=== PATIENT | male | born 1980 | race Two or more races ===

== ENCOUNTER 2018-01-27 06:11 | Inpatient (IN) | payer BC ==
[2018-01-26 11:20] VITALS: BMI 27.8
[~2018-01-27 06:11] MED LIST: BUPIVACAINE HCL/PF (5 MG/ML) 30 ML VIAL IJ ONE
[2018-01-27] MEDS ORDERED: LIDOCAINE 1%/EPI 1:100000 (20 ML MULTI DOSE VIAL) ONE (07:29)
[2018-01-27] MEDS ORDERED: THROMBIN (BOVINE) 20,000 UNIT VIAL TP ONE ×2 (07:29→09:05)
[2018-01-27] MEDS ORDERED: GENTAMICIN SO4 80 MG/2 ML VIAL ONE ×2 (07:31→11:47)
[2018-01-27] MEDS ORDERED: BUPIVACAINE HCL/PF 0.5% (5MG/ML) 10 ML VIAL ONE (07:35)
--- NOTE | 2018-01-27 07:38 | HP ---
History & Physical Update - History History: No Change - Physical Physical: No Change - Assessment Assessment: No Change - Plan Plan: No Change (H&P in chart from 01/20/2018)
[2018-01-27] MEDS ORDERED: MIDAZOLAM HCL 2 MG/2 ML SINGLE DOSE VIAL ONE (08:02)
[2018-01-27] MEDS ORDERED: fentaNYL CITRATE 250 MCG/5 ML VIAL ONE ×3 (08:03→11:59)
[2018-01-27] MEDS ORDERED: ROCURONIUM BROMIDE 50 MG/5 ML VIAL ONE ×3 (08:07→11:01)
[2018-01-27] MEDS ORDERED: LIDOCAINE HCL/PF 2% SDV 5ML VIAL ONE (08:08)
[2018-01-27] MEDS ORDERED: PROPOFOL 20 ML ONE ×4 (08:08→13:08)
[2018-01-27] MEDS ORDERED: SUCCINYLCHOLINE CHLORIDE 200 MG/10 ML VIAL ONE (08:23)
[2018-01-27] MEDS ORDERED: VANCOMYCIN 1,000 MG VIAL (RESTRICTED TO ID ONLY) IVPB ONE ×2 (08:40→11:57)
[2018-01-27] MEDS ORDERED: LIDOCAINE 1%/EPI 1:100000 (50 ML MULTI DOSE VIAL) INF ONE (09:00)
[2018-01-27] MEDS ORDERED: ACETAMINOPHEN 1000 MG/100 ML VIAL (NON FORMULARY) IVPB ONE ×2 (09:05→14:00)
[2018-01-27] MEDS ORDERED: ACETAMINOPHEN INJECTION 100 ML IVPB ONE (09:06)
[2018-01-27] MEDS ORDERED: GELATIN, ABSORBABLE 12-7MM EACH SPONGE TP ONE (09:10)
[2018-01-27] MEDS ORDERED: BACITRACIN 50,000 UNITS VIAL NR ONE ×3 (09:10→11:57)
[2018-01-27] MEDS ORDERED: THROMBIN (BOVINE) 5,000 UNIT VIAL TP ONE (09:10)
[2018-01-27] MEDS ORDERED: GENTAMICIN SO4 80 MG/2 ML VIAL IVPB ONE ×2 (09:10→11:57)
[2018-01-27] MEDS ORDERED: ceFAZolin SODIUM 1 GM VIAL IVPB ONE ×3 (09:26→12:35)
[2018-01-27] MEDS ORDERED: ceFAZolin SODIUM 1 GM VIAL ONE ×3 (09:32→19:40)
[2018-01-27] MEDS ORDERED: ONDANSETRON 4 MG/2 ML VIAL IVPUSH PRN ×4 (10:21→13:59)
[2018-01-27] MEDS ORDERED: LACTATED RINGERS SOLUTION 1,000 ML IV SCH ×2 (10:30→12:45)
[2018-01-27] MEDS ORDERED: HYDROmorphone *PCA* 10MG/50ML DISP.SYRIN PCA SCH (10:30)
[2018-01-27] MEDS ORDERED: ESMOLOL HCL 100,000 MCG/10 ML VIAL ONE (11:10)
[2018-01-27] MEDS ORDERED: VANCOMYCIN 1,000 MG VIAL (RESTRICTED TO ID ONLY) ONE (11:16)
[2018-01-27] MEDS ORDERED: DESFLURANE GAS 240 ML BOTTLE IH ONE (11:50)
[2018-01-27] MEDS ORDERED: NEOSTIGMINE METHYLSULFATE 0.5 MG/ML - 10 ML MDV ONE (11:54)
[2018-01-27] MEDS ORDERED: SODIUM CHLORIDE 0.9% P/F 10 ML VIAL IJ ONE (12:26)
[2018-01-27] MEDS ORDERED: oxyCODONE HCL 5 MG TABLET PO PRN (12:45)
[2018-01-27] MEDS ORDERED: CALCIUM CHLORIDE 1 GM/10 ML *DISP.SYRIN ONE (12:57)
[2018-01-27] MEDS ORDERED: BUPIVACAINE HCL/PF (5 MG/ML) 30 ML VIAL IJ ONE (13:17)
[2018-01-27] MEDS ORDERED: diphenhydrAMINE HCL 25 MG CAPSULE (FP) PO PRN (13:33)
[2018-01-27] MEDS ORDERED: IBUPROFEN 800 MG/8 ML IJ IVPB ONE ×2 (13:46→13:59)
[2018-01-27] MEDS: HYDROmorphone *PCA* 10MG/50ML DISP.SYRIN PCA SCH (14:35)
[2018-01-27] MEDS: LACTATED RINGERS SOLUTION 1,000 ML IV SCH ×2 (14:46→22:52)
--- NOTE | 2018-01-27 15:59 | OP ---
Operative Note - Note: Operative Date: 01/27/18 Pre-Operative Diagnosis: thoracic spondylolisthesis and instability Operation: T6-T11 laminectomy/costovetebral osteotomies decompression and fusion with pedicle screws, repair of durotomy Surgeon: Jakub Zazueta Anesthesiologist/STACKER AND SORTER OPERATOR: Tracy Gallego Anesthesia: General Estimated Blood Loss (mls): 900 Drains, Volume Out (mls): 700 (seals) Fluid Volume Replaced (mls): 3,500 Operative Report Dictated: Yes
[2018-01-27 16:27] LABS: HEMATOCRIT 39.6 % (35.4-49); HEMOGLOBIN 13.6 GM/dL (11.7-16.9); LYMPH % 6.2 % (8-40); MCH 32.5 pg (25.7-33.7); MCHC 34.4 g/dl (32.0-35.9); MEAN CELL VOLUME 94.4 fl (80-96); MEAN PLT VOLUME 9.2 fl (7.5-11.1); MONO % 1.3 % (3.8-10.2); NEUT % 92.5 % (42.8-82.8); PLATELET COUNT 197 K/MM3 (134-434); RBC 4.19 M/mm3 (4.00-5.60); RDW 12.7 % (11.9-15.9); WHITE BLOOD COUNT 17.5 K/mm3 (4.0-10.0)
[2018-01-27 17:23] LABS: PLATELET ESTIMATE ADEQUATE
[2018-01-27] MEDS: ACETAMINOPHEN 325 MG TABLET (FP) PO SCH ×2 (17:59→18:36)
[2018-01-27] MEDS: DOCUSATE SODIUM 100 MG CAPSULE (FP) PO SCH ×2 (17:59→21:09)
[2018-01-27] MEDS ORDERED: DEXTROSE 5%-WATER - 50 ML IVPB ONE (19:40)
[2018-01-27] MEDS: CEFAZOLIN 1 GM in DEXTROSE 5%-WATER - 50 ML IVPB SCH (19:47)
[2018-01-27] MEDS: HEPARIN NA (PORCINE) 5,000 UNITS/ML 1ML VIAL SQ SCH (21:09)
[2018-01-27] MEDS ORDERED: diazePAM 2 MG TABLET PO PRN (22:00)
[2018-01-28] MEDS: ACETAMINOPHEN 325 MG TABLET (FP) PO SCH ×4 (00:13→18:07)
[2018-01-28] MEDS: CEFAZOLIN 1 GM in DEXTROSE 5%-WATER - 50 ML IVPB SCH ×2 (02:35→09:47)
[2018-01-28] MEDS: HYDROmorphone *PCA* 10MG/50ML DISP.SYRIN PCA SCH ×2 (04:37→14:42)
[2018-01-28] MEDS: HEPARIN NA (PORCINE) 5,000 UNITS/ML 1ML VIAL SQ SCH ×3 (05:46→22:35)
[2018-01-28] MEDS: DOCUSATE SODIUM 100 MG CAPSULE (FP) PO SCH ×3 (05:46→22:34)
[2018-01-28] MEDS: LACTATED RINGERS SOLUTION 1,000 ML IV SCH ×2 (07:02→22:28)
[2018-01-28 07:03] LABS: HEMOGLOBIN 11.7 GM/dL (11.7-16.9); MCH 32.6 pg (25.7-33.7); MCHC 34.4 g/dl (32.0-35.9); MEAN CELL VOLUME 94.7 fl (80-96); MEAN PLT VOLUME 8.7 fl (7.5-11.1); PLATELET COUNT 159 K/MM3 (134-434); RBC 3.59 M/mm3 (4.00-5.60); RDW 12.5 % (11.9-15.9); WHITE BLOOD COUNT 16.1 K/mm3 (4.0-10.0)
[2018-01-28 07:59] LABS: ANION GAP 8 MMOL/L (8-16); BLOOD UREA NITROGEN 17 mg/dL (7-18); CALCIUM 8.3 mg/dL (8.5-10.1); CHLORIDE 102 mmol/L (98-107); CO2 28 mmol/L (21-32); CREATININE 0.7 mg/dL (0.7-1.3); GLUCOSE,RANDOM 117 mg/dL (74-106); POTASSIUM 4.7 mmol/L (3.5-5.1); SODIUM 138 mmol/L (136-145)
--- NOTE | 2018-01-28 08:54 | PN ---
Progress Note (short form) - Note Progress Note: Pt without any headaches. Having incisional back pain and a hypersensitivity to RUQ with light touch. Numbness tingling in his left arm resolved. No headaches today. Vital Signs Period Temp Pulse Resp BP Sys/Lin Pulse Ox Last 24 Hr 98.1 F-99.6 F 80-132 10-22 93-128/50-74 98-100 NIRAJ: 230 ml serosangrenous uop-500 ml clear/yellow urine GEN: A&0x3, having pain CV: RR, mild tachycardia Lungs: CTA b/l anteriorly ABD: soft, non-distended, non-tender Back: incision c/d/i with aquacel Neuro: upper motor strength 5/5 bilaterally with flexion/extension. 5/5 dorsi/ plantar flexion b/l. CBC, BMP 01/28/18 06:30 01/28/18 06:30 A/P: 37 yo male s/p T6-T11 laminectomy/costovetebral osteotomies decompression and fusion with pedicle screws Diet as tolerated Pain managment, increased frequency and dose of valium OOB/PT Continue to monitor NIRAJ outpt Stool softners colace/senna and MOM(as needed) DVT ppx with Hep SQ/SCDs IV abx while the drain remains D/w Dr. Zazueta
[2018-01-28] MEDS: diazePAM 2 MG TABLET PO SCH ×3 (09:37→22:35)
[2018-01-28] MEDS: SENNOSIDES 8.6MG TABLET (FP) PO SCH ×2 (09:38→22:35)
[2018-01-28] MEDS: FOLIC ACID 1 MG TABLET (FP) PO SCH (09:38)
[2018-01-28] MEDS: FERROUS SO4 325 MG TABLET (FP) PO SCH (09:38)
[2018-01-28] MEDS ORDERED: ceFAZolin SODIUM 1 GM VIAL ONE (09:45)
[2018-01-28] MEDS ORDERED: DEXTROSE 5%-WATER - 50 ML IVPB ONE (09:46)
--- NOTE | 2018-01-28 12:05 | PN ---
Progress Note (short form) - Note Progress Note: Anesthesia POD#1 S/P Costovertebral decompression under GA and HEAVY ANTIARMOR WEAPONS INFANTRYMAN VSS,started oral liquids,still needs HEAVY ANTIARMOR WEAPONS INFANTRYMAN for his pain, nausea sometimes. A/P Continue HEAVY ANTIARMOR WEAPONS INFANTRYMAN for today. Marlene Coats MD.
[2018-01-28] MEDS ORDERED: SIMETHICONE 80 MG TAB.CHEW (FP) PO PRN (14:42)
[2018-01-28] MEDS ORDERED: PT OWN MED DRAWER 7, Y5N ONE (21:53)
--- NOTE | 2018-01-28 21:53 | PN ---
Progress Note (short form) - Note Progress Note: patient seen and examined in room although has TRANSACTIONAL ATTORNEY reports "lots of pain" was able to stand and take few steps today Allergies PCN as a child PMH "back pain" Meds none hx of smoking none for many yrs Vital Signs Period Temp Pulse Resp BP Sys/Lin Pulse Ox Last 24 Hr 98.1 F-99.6 F 80-106 16-20 95-118/57-73 99 neck supple heart s1/s2 lung clear bilat abd soft / mildy distended / + tympanic BS ++ ext FROM / dvt stocking in place / seals in place CBC, BMP 01/28/18 06:30 01/28/18 06:30 Active Medications Acetaminophen (Tylenol -) 650 mg PO Q6H [facility] Last Admin: 01/28/18 18:07 Dose: 650 mg Diazepam (Valium -) 5 mg PO TID [facility] Stop: 01/29/18 22:01 Last Admin: 01/28/18 14:33 Dose: 5 mg Diphenhydramine HCl (Benadryl -) 25 mg PO Q6H PRN PRN Reason: FOR ITCHING Diphenhydramine HCl (Benadryl Injection -) 12.5 mg IVPUSH ONCE PRN PRN Reason: FOR ITCHING Docusate Sodium (Colace -) 100 mg PO TID [facility] Last Admin: 01/28/18 14:32 Dose: 100 mg Fentanyl (Sublimaze Injection -) 50 mcg IVPUSH [id number] PRN PRN Reason: PAIN-PACU ORDER X 4 DOSES ONLY Ferrous Sulfate (Feosol -) 325 mg PO DAILY [facility] Last Admin: 01/28/18 09:38 Dose: 325 mg Folic Acid (Folic Acid -) 1 mg PO DAILY [facility] Last Admin: 01/28/18 09:38 Dose: 1 mg Heparin Sodium (Porcine) (Heparin -) 5,000 unit SQ TID [facility] Last Admin: 01/28/18 14:33 Dose: 5,000 unit Hydromorphone HCl (Dilaudid Nursing Education Consultant -) 10 mg TRANSACTIONAL ATTORNEY TRANSACTIONAL ATTORNEY [facility]; Protocol Stop: 02/03/18 10:24 Last Admin: 01/28/18 14:42 Dose: 10 mg Lactated Ringer's (Lactated Ringers Solution) 1,000 mls @ 125 mls/hr IV ASDIR [facility] Last Admin: 01/28/18 07:02 Dose: 125 mls/hr Magnesium Hydroxide (Milk Of Magnesia -) 30 ml PO DAILY PRN PRN Reason: CONSTIPATION Ondansetron HCl (Zofran Injection) 4 mg IVPUSH Q6H PRN PRN Reason: NAUSEA AND/OR VOMITING Ondansetron HCl (Zofran Injection) 4 mg IVPUSH Q4H PRN PRN Reason: NAUSEA AND/OR VOMITING Pantoprazole Sodium (Protonix Iv) 40 mg IVPUSH DAILY [facility] Stop: 01/30/18 23:59 Senna (Senna -) 1 tab PO BID [facility] Last Admin: 01/28/18 09:38 Dose: 1 tab Simethicone (Mylicon -) 80 mg PO Q6H [facility] # POD#1 thoracic spondylolisthesis and instability s/p T6-T11 laminectomy/costovetebral osteotomies decompression and fusion with pedicle screws --TRANSACTIONAL ATTORNEY --simethicone --stool tx --encourage ambulation in am will order nebulzer tx encourage incentive spirometry
[2018-01-28] MEDS: PANTOPRAZOLE SODIUM 40 MG VIAL IVPUSH SCH (22:35)
[2018-01-29] MEDS: SIMETHICONE 80 MG TAB.CHEW (FP) PO SCH ×5 (00:13→23:30)
[2018-01-29] MEDS: LACTATED RINGERS SOLUTION 1,000 ML IV SCH ×2 (00:14→14:45)
[2018-01-29] MEDS: ACETAMINOPHEN 325 MG TABLET (FP) PO SCH ×4 (01:28→18:20)
[2018-01-29] MEDS: HYDROmorphone *PCA* 10MG/50ML DISP.SYRIN PCA SCH ×2 (02:25→14:42)
[2018-01-29] MEDS: HEPARIN NA (PORCINE) 5,000 UNITS/ML 1ML VIAL SQ SCH ×3 (06:40→21:07)
[2018-01-29] MEDS: diazePAM 2 MG TABLET PO SCH ×3 (06:41→21:10)
[2018-01-29] MEDS: DOCUSATE SODIUM 100 MG CAPSULE (FP) PO SCH ×3 (06:41→21:06)
[2018-01-29] MEDS: ALBUTEROL SO4 2.5/IPRATROPIUM 0.5 INH SOL 3 ML VIAL.NEB. NEB SCH ×4 (07:45→20:00)
[2018-01-29 08:03] LABS: BASO % 0.3 % (0-2.0); EOS % 0.2 % (0-4.5); HEMATOCRIT 28.4 % (35.4-49); HEMOGLOBIN 9.7 GM/dL (11.7-16.9); LYMPH % 16.7 % (8-40); MCH 32.1 pg (25.7-33.7); MCHC 34.2 g/dl (32.0-35.9); MEAN CELL VOLUME 93.9 fl (80-96); MEAN PLT VOLUME 8.4 fl (7.5-11.1); MONO % 11.5 % (3.8-10.2); NEUT % 71.3 % (42.8-82.8); PLATELET COUNT 127 K/MM3 (134-434); RBC 3.02 M/mm3 (4.00-5.60); RDW 12.4 % (11.9-15.9); WHITE BLOOD COUNT 11.9 K/mm3 (4.0-10.0)
--- NOTE | 2018-01-29 08:21 | PN ---
Progress Note (short form) - Note Progress Note: Anesthesia /acute pain management follow up 37 y/o M s/p T6T11 fusion, on MANAGER SURGICAL POD#2, vss, aaox3 using outlet manager and feeling better. Will continue outlet manager today.
[2018-01-29 09:28] LABS: ANION GAP 7 MMOL/L (8-16); BLOOD UREA NITROGEN 14 mg/dL (7-18); CALCIUM 7.8 mg/dL (8.5-10.1); CHLORIDE 101 mmol/L (98-107); CO2 30 mmol/L (21-32); CREATININE 0.7 mg/dL (0.7-1.3); GLUCOSE,RANDOM 103 mg/dL (74-106); POTASSIUM 3.9 mmol/L (3.5-5.1); SODIUM 138 mmol/L (136-145)
[2018-01-29] MEDS: FOLIC ACID 1 MG TABLET (FP) PO SCH (10:28)
[2018-01-29] MEDS: FERROUS SO4 325 MG TABLET (FP) PO SCH (10:28)
[2018-01-29] MEDS: MAGNESIUM HYDROX 2400MG/30ML ORAL SUSPENSION 30 ML CUP PO PRN (10:28)
[2018-01-29] MEDS: SENNOSIDES 8.6MG TABLET (FP) PO SCH ×2 (10:28→21:06)
[2018-01-29] MEDS: PANTOPRAZOLE SODIUM 40 MG VIAL IVPUSH SCH (10:28)
--- NOTE | 2018-01-29 12:23 | PN ---
Progress Note (short form) - Note Progress Note: 37 y/o male found sitting in bed s/p laminectomy. Rates pain as 7/10 on pain scale. Described as throbbing. Vital Signs Period Temp Pulse Resp BP Sys/Lin Pulse Ox Last 24 Hr 98.2 F-99.6 F 98-110 16-20 98-118/50-73 99 CBC, BMP 01/29/18 07:30 01/29/18 07:30 HEENT- NL Neck- supple Lungs- CTAB Heart- S1/S2 Abd- soft, nt Skin- Dsg intact on upper back Ext- No LE edema Active Medications Acetaminophen (Tylenol -) 650 mg PO Q6H [facility] Last Admin: 01/29/18 06:46 Dose: 650 mg Albuterol/Ipratropium (Duoneb -) 1 amp NEB RQID [facility] Stop: 01/30/18 23:59 Last Admin: 01/29/18 11:44 Dose: Not Given Diazepam (Valium -) 5 mg PO TID [facility] Stop: 01/29/18 22:01 Last Admin: 01/29/18 06:41 Dose: 5 mg Diphenhydramine HCl (Benadryl -) 25 mg PO Q6H PRN PRN Reason: FOR ITCHING Diphenhydramine HCl (Benadryl Injection -) 12.5 mg IVPUSH ONCE PRN PRN Reason: FOR ITCHING Docusate Sodium (Colace -) 100 mg PO TID [facility] Last Admin: 01/29/18 06:41 Dose: 100 mg Fentanyl (Sublimaze Injection -) 50 mcg IVPUSH [id number] PRN PRN Reason: PAIN-PACU ORDER X 4 DOSES ONLY Ferrous Sulfate (Feosol -) 325 mg PO DAILY [facility] Last Admin: 01/29/18 10:28 Dose: 325 mg Folic Acid (Folic Acid -) 1 mg PO DAILY [facility] Last Admin: 01/29/18 10:28 Dose: 1 mg Heparin Sodium (Porcine) (Heparin -) 5,000 unit SQ TID [facility] Last Admin: 01/29/18 06:40 Dose: 5,000 unit Hydromorphone HCl (Dilaudid Art Sales Consultant -) 10 mg TIRE DUSTER TIRE DUSTER [facility]; Protocol Stop: 02/03/18 10:24 Last Admin: 01/29/18 02:25 Dose: 10 mg Lactated Ringer's (Lactated Ringers Solution) 1,000 mls @ 125 mls/hr IV ASDIR [facility] Last Admin: 01/29/18 00:14 Dose: 125 mls/hr Magnesium Hydroxide (Milk Of Magnesia -) 30 ml PO DAILY PRN PRN Reason: CONSTIPATION Last Admin: 01/29/18 10:28 Dose: 30 ml Ondansetron HCl (Zofran Injection) 4 mg IVPUSH Q6H PRN PRN Reason: NAUSEA AND/OR VOMITING Ondansetron HCl (Zofran Injection) 4 mg IVPUSH Q4H PRN PRN Reason: NAUSEA AND/OR VOMITING Pantoprazole Sodium (Protonix Iv) 40 mg IVPUSH DAILY [facility] Stop: 01/30/18 23:59 Last Admin: 01/29/18 10:28 Dose: 40 mg Senna (Senna -) 1 tab PO BID [facility] Last Admin: 01/29/18 10:28 Dose: 1 tab Simethicone (Mylicon -) 80 mg PO Q6HPO [facility] Last Admin: 01/29/18 06:39 Dose: 80 mg # thoracic spondylolisthesis s/p T6-T11 laminectomy/costovertebral osteotomies decompression and fusion - pain controlled with TIRE DUSTER - encourage spirometry use - encourage ambulation - trend cbc
--- NOTE | 2018-01-29 13:07 | PN ---
Progress Note (short form) - Note Progress Note: 37yo M s/p T6-T11 fusion POD #2, seen and examined at bedside. Pt states that his pain is much improved and was able to get out of bed and ambulate with PT. Pt still on TIE KNITTER HELPER but states that pain is getting better. Pt denies n/v, fever, chills. Last Vital Signs Temp Pulse Resp BP Pulse Ox 98.8 F 110 H 20 118/72 99 01/29/18 06:47 01/29/18 06:47 01/29/18 06:47 01/29/18 06:47 01/28/18 21:00 CBC, BMP 01/29/18 07:30 01/29/18 07:30 PE: Gen: A&O x3 Resp: breathing comfortably Back: incision is clean with no erythema or discharge. Drain in place with serosanguinous drainage. Output: 370ml Ext: no weakness, numbness, full ROM. No edema. Problem List - Problems (1) Status post thoracic spinal fusion Assessment/Plan: A/P: 37 yo male s/p T6-T11 laminectomy/costovetebral osteotomies decompression and fusion with pedicle screws Diet as tolerated Pain managment, OOB/PT Continue to monitor NIRAJ outpt Stool softners colace/senna and MOM(as needed) DVT ppx with Hep SQ/SCDs IV abx while the drain remains D/w Dr. Zazueta Code(s): Z98.1 - ARTHRODESIS STATUS
[2018-01-29] MEDS ORDERED: HYDROmorphone *PCA* 10MG/50ML DISP.SYRIN PCA ONE (14:36)
[2018-01-29] MEDS: TAMSULOSIN HCL 0.4 MG CAP.ER.24H (FP) PO SCH (18:25)
[2018-01-30] MEDS: ACETAMINOPHEN 325 MG TABLET (FP) PO SCH ×5 (00:12→18:16)
[2018-01-30] MEDS: LACTATED RINGERS SOLUTION 1,000 ML IV SCH ×2 (00:51→10:05)
[2018-01-30] MEDS: HYDROmorphone *PCA* 10MG/50ML DISP.SYRIN PCA SCH (01:00)
[2018-01-30] MEDS: SIMETHICONE 80 MG TAB.CHEW (FP) PO SCH ×3 (06:07→18:15)
[2018-01-30] MEDS: DOCUSATE SODIUM 100 MG CAPSULE (FP) PO SCH ×3 (06:07→21:13)
[2018-01-30] MEDS: HEPARIN NA (PORCINE) 5,000 UNITS/ML 1ML VIAL SQ SCH ×3 (06:09→21:13)
[2018-01-30] MEDS: ALBUTEROL SO4 2.5/IPRATROPIUM 0.5 INH SOL 3 ML VIAL.NEB. NEB SCH ×4 (07:40→20:39)
--- NOTE | 2018-01-30 08:19 | PN ---
Progress Note (short form) - Note Progress Note: Anesthesia Post op/pain Pt seen and examined S;Alert and awake comfortable O: Vital Signs Temperature 98.5 F 01/30/18 06:33 Pulse Rate 112 H 01/30/18 06:33 Respiratory Rate 18 01/30/18 06:33 Blood Pressure 119/69 01/30/18 06:33 O2 Sat by Pulse Oximetry (%) 99 01/29/18 20:54 CBC, BMP 01/29/18 07:30 01/29/18 07:30 A/P Current Active Problems Status post thoracic spinal fusion (Acute) Doing well post op Continue SENIOR MECHANICAL ENGINEER Continue current care Alok Haynes MD
[2018-01-30 08:38] LABS: BASO % 0.3 % (0-2.0); EOS % 1.3 % (0-4.5); HEMATOCRIT 27.8 % (35.4-49); HEMOGLOBIN 9.5 GM/dL (11.7-16.9); LYMPH % 20.5 % (8-40); MCH 32.2 pg (25.7-33.7); MCHC 34.2 g/dl (32.0-35.9); MEAN CELL VOLUME 94.2 fl (80-96); MEAN PLT VOLUME 8.3 fl (7.5-11.1); MONO % 9.7 % (3.8-10.2); NEUT % 68.2 % (42.8-82.8); PLATELET COUNT 143 K/MM3 (134-434); RBC 2.95 M/mm3 (4.00-5.60); RDW 12.2 % (11.9-15.9); WHITE BLOOD COUNT 9.3 K/mm3 (4.0-10.0)
[2018-01-30] MEDS: TAMSULOSIN HCL 0.4 MG CAP.ER.24H (FP) PO SCH (08:45)
--- NOTE | 2018-01-30 09:14 | PN ---
Progress Note (short form) - Note Progress Note: 37 y/o s/p spinal fusion found sitting in bed. Reports severe gas pain worse than back pain. Vital Signs Period Temp Pulse Resp BP Sys/Lin Pulse Ox Last 24 Hr 98.5 F-99.2 F 103-114 18-20 106-128/65-82 99 CBC, BMP 01/30/18 08:00 HEENT- NL Neck- supple Lungs- CTAB Heart- S1/S2 Abd- Soft, nt Skin- Surgical dsg intact Ext- No LE edema Active Medications Acetaminophen (Tylenol -) 650 mg PO Q6H [facility] Last Admin: 01/30/18 06:07 Dose: 650 mg Albuterol/Ipratropium (Duoneb -) 1 amp NEB RQID [facility] Stop: 01/30/18 23:59 Last Admin: 01/30/18 07:40 Dose: Not Given Diphenhydramine HCl (Benadryl -) 25 mg PO Q6H PRN PRN Reason: FOR ITCHING Diphenhydramine HCl (Benadryl Injection -) 12.5 mg IVPUSH ONCE PRN PRN Reason: FOR ITCHING Docusate Sodium (Colace -) 100 mg PO TID [facility] Last Admin: 01/30/18 06:07 Dose: 100 mg Ferrous Sulfate (Feosol -) 325 mg PO DAILY [facility] Last Admin: 01/29/18 10:28 Dose: 325 mg Folic Acid (Folic Acid -) 1 mg PO DAILY [facility] Last Admin: 01/29/18 10:28 Dose: 1 mg Heparin Sodium (Porcine) (Heparin -) 5,000 unit SQ TID [facility] Last Admin: 01/30/18 06:09 Dose: 5,000 unit Hydromorphone HCl (Dilaudid Information Services Consultant -) 10 mg LINEMAN A CLASS LINEMAN A CLASS [facility]; Protocol Stop: 02/03/18 10:24 Last Admin: 01/30/18 01:00 Dose: 10 mg Lactated Ringer's (Lactated Ringers Solution) 1,000 mls @ 125 mls/hr IV ASDIR [facility] Last Admin: 01/30/18 00:51 Dose: 125 mls/hr Magnesium Hydroxide (Milk Of Magnesia -) 30 ml PO DAILY PRN PRN Reason: CONSTIPATION Last Admin: 01/29/18 10:28 Dose: 30 ml Ondansetron HCl (Zofran Injection) 4 mg IVPUSH Q6H PRN PRN Reason: NAUSEA AND/OR VOMITING Ondansetron HCl (Zofran Injection) 4 mg IVPUSH Q4H PRN PRN Reason: NAUSEA AND/OR VOMITING Pantoprazole Sodium (Protonix Iv) 40 mg IVPUSH DAILY [facility] Stop: 01/30/18 23:59 Last Admin: 01/29/18 10:28 Dose: 40 mg Senna (Senna -) 1 tab PO BID [facility] Last Admin: 01/29/18 21:06 Dose: 1 tab Senna (Senna -) 1 tab PO HS [facility] Simethicone (Mylicon -) 80 mg PO Q6HPO [facility] Last Admin: 01/30/18 06:07 Dose: 80 mg Tamsulosin HCl (Flomax -) 0.4 mg PO DAILY@0830 [facility] Last Admin: 01/30/18 08:45 Dose: 0.4 mg # thoracic spondylolisthesis s/p T6-T11 laminectomy/costovertebral osteotomies decompression and fusion - pain controlled with LINEMAN A CLASS - encourage spirometry use/ ambulation - trend cbc # Gas Pains/ constipation - Simethicone q 6 hrs - MOM - Senna ordered - Encourage ambulation
[2018-01-30 09:18] LABS: ALBUMIN 2.7 g/dl (3.4-5.0); BLOOD UREA NITROGEN 8 mg/dL (7-18); CALCIUM 8.3 mg/dL (8.5-10.1); CO2 32 mmol/L (21-32); GLUCOSE,RANDOM 106 mg/dL (74-106)
--- NOTE | 2018-01-30 09:57 | PN ---
Progress Note (short form) - Note Progress Note: POD#3 Pt with slight dull headache, no changes to headache with changing position. No CP/SOB. Unable to void last pm and seals reinserted. OOb and ambulate with PT to bathroom. No passing any flatus/bm yet. No upper ext/lower ext tingling. Vital Signs Period Temp Pulse Resp BP Sys/Lin Pulse Ox Last 24 Hr 98.5 F-99.2 F 103-114 18-20 106-128/65-82 99 NIRAJ: 435 cc clear/strawberry colored uop: 3500 ml clear/yellow urine GEN: A&0x3, appears comfortable CV: RRR Lungs: CTA b/l anteriorly ABD: soft, slight distended, non-tender Neuro: motor strength to upper/lower ext b/l 5/5 Back: aquacel dressing in place, inferior edge peeling away a small amount, it was removed and gauze/teagerm applied. No edema surrounding dressing. CBC, BMP 01/30/ 08:00 A/P: 37 yo male s/p T6-T11 laminectomy/costovetebral osteotomies decompression and fusion with pedicle screws, repair of durotomy Continue diet as tolerated, stool softners colace/senna/MOM OOB with PT Pt with H&H stabliing, although significant drop since admission. Will continue iron and follic acid and hold off on transfusion at this time. IV abx while the drain remains in place DVT ppx with Heparin SQ Outpt of drain remains high but serous/wood preparation supervisor fluid color, ?CSF and will place drain to passive collection system(bile bag) versus NIRAJ suction. Pt appears to be asymptomatic at this point. Having slight headache but no increase with change of positioning. Case D/w Dr. Zazueta
[2018-01-30] MEDS: MAGNESIUM HYDROX 2400MG/30ML ORAL SUSPENSION 30 ML CUP PO PRN (10:04)
[2018-01-30] MEDS: FOLIC ACID 1 MG TABLET (FP) PO SCH (10:04)
[2018-01-30] MEDS: FERROUS SO4 325 MG TABLET (FP) PO SCH (10:04)
[2018-01-30] MEDS: SENNOSIDES 8.6MG TABLET (FP) PO SCH ×2 (10:04→21:13)
[2018-01-30] MEDS: PANTOPRAZOLE SODIUM 40 MG VIAL IVPUSH SCH (10:04)
[2018-01-30 10:20] LABS: ALK PHOS 47 U/L (45-117); ANION GAP 5 MMOL/L (8-16); BILIRUBIN,TOTAL 0.9 mg/dL (0.2-1.0); CHLORIDE 100 mmol/L (98-107); CREATININE 0.7 mg/dL (0.55-1.3); POTASSIUM 4.6 mmol/L (3.5-5.1); SGOT/AST 26 U/L (15-37); SGPT/ALT 19 U/L (13-61); SODIUM 137 mmol/L (136-145); TOT PROT 5.3 g/dl (6.4-8.2)
[2018-01-30] MEDS ORDERED: oxyCODONE HCL 5 MG TABLET PO PRN (11:46)
[2018-01-30] MEDS: oxyCODONE HCL 10 MG SUSTAINED ACTING TABLET PO SCH ×2 (12:05→21:12)
--- NOTE | 2018-01-30 14:27 | SURG ---
Surgery Coal Chemist Note Coal Chemist: Sita Love PA-C Date of Service: 01/27/18 Diagnosis: thoracic spondylolisthesis and instability Procedure: T6-T11 laminectomy/costovetebral osteotomies decompression and fusion with pedicle screws, repair of durotomy I was present for the entirety of the operative procedure. For further detail, please refer to operative report. Visit type - Case Type Case Type: Scheduled - Emergency Emergency Visit: No - New patient This patient is new to me today: Yes Date on this admission: 01/27/18
[2018-01-30] MEDS ORDERED: ceFAZolin SODIUM 1 GM VIAL ONE ×2 (16:56→23:15)
[2018-01-30] MEDS ORDERED: DEXTROSE 5%-WATER - 50 ML IVPB ONE ×2 (16:57→23:15)
[2018-01-30] MEDS: CEFAZOLIN 1 GM in DEXTROSE 5%-WATER - 50 ML IVPB SCH (16:59)
[2018-01-30] MEDS: oxyCODONE HCL 5 MG TABLET PO PRN (16:59)
[2018-01-30] MEDS ORDERED: PT OWN MED DRAWER 7, Y5N ONE (19:55)
[2018-01-31] MEDS: SIMETHICONE 80 MG TAB.CHEW (FP) PO SCH ×5 (00:25→22:59)
[2018-01-31] MEDS: CEFAZOLIN 1 GM in DEXTROSE 5%-WATER - 50 ML IVPB SCH ×2 (02:08→09:57)
[2018-01-31] MEDS: oxyCODONE HCL 5 MG TABLET PO PRN ×4 (02:09→19:45)
[2018-01-31] MEDS: ACETAMINOPHEN 325 MG TABLET (FP) PO SCH ×4 (02:10→17:50)
[2018-01-31] MEDS: DOCUSATE SODIUM 100 MG CAPSULE (FP) PO SCH ×3 (06:01→21:25)
[2018-01-31] MEDS: HEPARIN NA (PORCINE) 5,000 UNITS/ML 1ML VIAL SQ SCH ×3 (06:01→21:29)
[2018-01-31] MEDS: TAMSULOSIN HCL 0.4 MG CAP.ER.24H (FP) PO SCH (07:55)
[2018-01-31 08:21] LABS: ALBUMIN 2.6 g/dl (3.4-5.0); ANION GAP 10 MMOL/L (8-16); BLOOD UREA NITROGEN 5 mg/dL (7-18); CALCIUM 8.2 mg/dL (8.5-10.1); CHLORIDE 105 mmol/L (98-107); CO2 27 mmol/L (21-32); GLUCOSE,RANDOM 104 mg/dL (74-106); POTASSIUM 4.1 mmol/L (3.5-5.1); SODIUM 142 mmol/L (136-145)
[2018-01-31 08:25] LABS: ALK PHOS 47 U/L (45-117); BILIRUBIN,TOTAL 0.8 mg/dL (0.2-1.0); CREATININE 0.7 mg/dL (0.55-1.3); SGOT/AST 22 U/L (15-37); SGPT/ALT 21 U/L (13-61); TOT PROT 5.4 g/dl (6.4-8.2)
[2018-01-31] MEDS ORDERED: DEXTROSE 5%-WATER - 50 ML IVPB ONE (09:14)
[2018-01-31] MEDS ORDERED: ceFAZolin SODIUM 1 GM VIAL ONE (09:14)
[2018-01-31 09:28] LABS: BASO % 0.3 % (0-2.0); EOS % 3.8 % (0-4.5); HEMATOCRIT 28.2 % (35.4-49); HEMOGLOBIN 9.8 GM/dL (11.7-16.9); LYMPH % 17.1 % (8-40); MCH 33.2 pg (25.7-33.7); MCHC 34.8 g/dl (32.0-35.9); MEAN CELL VOLUME 95.3 fl (80-96); MEAN PLT VOLUME 8.9 fl (7.5-11.1); MONO % 9.4 % (3.8-10.2); NEUT % 69.4 % (42.8-82.8); PLATELET COUNT 186 K/MM3 (134-434); RBC 2.96 M/mm3 (4.00-5.60); RDW 12.2 % (11.9-15.9); WHITE BLOOD COUNT 9.1 K/mm3 (4.0-10.0)
[2018-01-31] MEDS: FOLIC ACID 1 MG TABLET (FP) PO SCH (09:55)
[2018-01-31] MEDS: PANTOPRAZOLE 40 MG TABLET (FP) PO SCH (09:55)
[2018-01-31] MEDS: FERROUS SO4 325 MG TABLET (FP) PO SCH (09:55)
[2018-01-31] MEDS: oxyCODONE HCL 10 MG SUSTAINED ACTING TABLET PO SCH ×2 (09:56→21:26)
[2018-01-31] MEDS ORDERED: PT OWN MED DRAWER 7, Y5N ONE (11:35)
[2018-01-31] MEDS: MAGNESIUM HYDROX 2400MG/30ML ORAL SUSPENSION 30 ML CUP PO PRN (12:22)
[2018-01-31] MEDS: diazePAM 5 MG TABLET PO PRN (14:04)
[2018-01-31] MEDS: SENNOSIDES 8.6MG TABLET (FP) PO SCH (21:25)
[2018-02-01] MEDS: ACETAMINOPHEN 325 MG TABLET (FP) PO SCH ×5 (00:31→23:58)
[2018-02-01] MEDS: oxyCODONE HCL 5 MG TABLET PO PRN (02:13)
[2018-02-01] MEDS: diazePAM 5 MG TABLET PO PRN (06:16)
[2018-02-01] MEDS: DOCUSATE SODIUM 100 MG CAPSULE (FP) PO SCH ×3 (06:16→21:07)
[2018-02-01] MEDS: SIMETHICONE 80 MG TAB.CHEW (FP) PO SCH ×4 (06:21→23:58)
[2018-02-01] MEDS: HEPARIN NA (PORCINE) 5,000 UNITS/ML 1ML VIAL SQ SCH ×3 (06:21→21:06)
[2018-02-01 07:52] LABS: BASO % 0.6 % (0-2.0); EOS % 4.8 % (0-4.5); HEMATOCRIT 34.2 % (35.4-49); HEMOGLOBIN 11.8 GM/dL (11.7-16.9); LYMPH % 20.1 % (8-40); MCH 32.6 pg (25.7-33.7); MCHC 34.4 g/dl (32.0-35.9); MEAN CELL VOLUME 94.8 fl (80-96); MEAN PLT VOLUME 7.6 fl (7.5-11.1); MONO % 9.9 % (3.8-10.2); NEUT % 64.6 % (42.8-82.8); PLATELET COUNT 275 K/MM3 (134-434); RBC 3.61 M/mm3 (4.00-5.60); RDW 12.6 % (11.9-15.9); WHITE BLOOD COUNT 10.3 K/mm3 (4.0-10.0)
[2018-02-01 08:57] LABS: ANION GAP 8 MMOL/L (8-16); CHLORIDE 99 mmol/L (98-107); CO2 29 mmol/L (21-32); GLUCOSE,RANDOM 98 mg/dL (74-106); POTASSIUM 4.2 mmol/L (3.5-5.1); SODIUM 136 mmol/L (136-145)
[2018-02-01] MEDS: TAMSULOSIN HCL 0.4 MG CAP.ER.24H (FP) PO SCH (09:13)
[2018-02-01] MEDS: FERROUS SO4 325 MG TABLET (FP) PO SCH (09:13)
[2018-02-01] MEDS: oxyCODONE HCL 10 MG SUSTAINED ACTING TABLET PO SCH ×2 (09:14→21:07)
[2018-02-01] MEDS: PANTOPRAZOLE 40 MG TABLET (FP) PO SCH (09:14)
[2018-02-01] MEDS: FOLIC ACID 1 MG TABLET (FP) PO SCH (09:15)
[2018-02-01 09:16] LABS: BLOOD UREA NITROGEN 9 mg/dL (7-18); CREATININE 0.8 mg/dL (0.55-1.3)
[2018-02-01] MEDS: MAGNESIUM HYDROX 2400MG/30ML ORAL SUSPENSION 30 ML CUP PO PRN ×2 (14:15→21:06)
--- NOTE | 2018-02-01 18:04 | PN ---
Progress Note (short form) - Note Progress Note: patient seen and examined in room c/o constipation + abdominal pain voiding freely Vital Signs Period Temp Pulse Resp BP Sys/Lin Pulse Ox Last 24 Hr 97.9 F-98.6 F 88-97 18-20 111-127/64-86 98-98 neck supple heart s1/s2 lung clear bilat abd firm / diffusely tender / BS ++ ext FROM / dvt stocking in place / seals out CBC, BMP 02/01/18 07:00 02/01/18 07:00 Active Medications Acetaminophen (Tylenol -) 650 mg PO Q6H [facility] Last Admin: 02/01/18 17:46 Dose: 650 mg Diazepam (Valium -) 5 mg PO BID PRN PRN Reason: BACK PAIN Last Admin: 02/01/18 06:16 Dose: 5 mg Diphenhydramine HCl (Benadryl -) 25 mg PO Q6H PRN PRN Reason: FOR ITCHING Diphenhydramine HCl (Benadryl Injection -) 12.5 mg IVPUSH ONCE PRN PRN Reason: FOR ITCHING Docusate Sodium (Colace -) 100 mg PO TID [facility] Last Admin: 02/01/18 14:15 Dose: 100 mg Ferrous Sulfate (Feosol -) 325 mg PO DAILY [facility] Last Admin: 02/01/18 09:13 Dose: 325 mg Folic Acid (Folic Acid -) 1 mg PO DAILY [facility] Last Admin: 02/01/18 09:15 Dose: 1 mg Heparin Sodium (Porcine) (Heparin -) 5,000 unit SQ TID [facility] Last Admin: 02/01/18 14:18 Dose: 5,000 unit Magnesium Hydroxide (Milk Of Magnesia -) 30 ml PO DAILY PRN PRN Reason: CONSTIPATION Last Admin: 02/01/18 14:15 Dose: 30 ml Ondansetron HCl (Zofran Injection) 4 mg IVPUSH Q4H PRN PRN Reason: NAUSEA AND/OR VOMITING Oxycodone HCl (Roxicodone -) 5 mg PO Q4H PRN PRN Reason: PAIN LEVEL 1-5 Last Admin: 01/30/18 12:06 Dose: 5 mg Oxycodone HCl (Roxicodone -) 10 mg PO Q4H PRN PRN Reason: PAIN LEVEL 6-10 Last Admin: 02/01/18 02:13 Dose: 10 mg Oxycodone HCl (Oxycontin -) 10 mg PO BID [facility] Stop: 02/01/18 22:01 Last Admin: 02/01/18 09:14 Dose: 10 mg Pantoprazole Sodium (Protonix -) 40 mg PO DAILY [facility] Last Admin: 02/01/18 09:14 Dose: 40 mg Senna (Senna -) 1 tab PO HS [facility] Last Admin: 01/31/18 21:25 Dose: 1 tab Simethicone (Mylicon -) 80 mg PO Q6HPO [facility] Last Admin: 02/01/18 17:46 Dose: 80 mg Tamsulosin HCl (Flomax -) 0.4 mg PO DAILY@0830 [facility] Last Admin: 02/01/18 09:13 Dose: 0.4 mg # POD thoracic spondylolisthesis and instability s/p T6-T11 laminectomy/costovetebral osteotomies decompression and fusion with pedicle screws --LINE PALLETIZER d/c 'd on 01/30 -- transitioned to Oxycocodone --simethicone --stool tx --encourage ambulation # abdominal pain / constipation - on MOM + senna - s/o Enema with no results --- will repeat - Miralax TID and colace 200 tid - repeat enema # smoker nebulizer QID # s/p urinary obstruction - required seals continue with flomax
[2018-02-01] MEDS ORDERED: MINERAL OIL ENEMA 133 ML ENEMA PR ONE (18:15)
--- NOTE | 2018-02-01 18:16 | PN ---
Progress Note (short form) - Note Progress Note: -: 37 y/o s/p spinal fusion found sitting in bed. Reports severe gas pain worse than back pain. reports no BM continues with pain meds around the clock encourage ambulation Vital Signs Period Temp Pulse Resp BP Sys/Lin Pulse Ox Last 24 Hr 98.5 F-99.2 F 103-114 18-20 106-128/65-82 99 no fever / chill HEENT- NL Neck- supple Lungs- CTAB Heart- S1/S2 Abd- Soft, nt Skin- Surgical dsg intact Ext- No LE edema Active Medications Acetaminophen (Tylenol -) 650 mg PO Q6H [facility] Last Admin: 01/30/18 06:07 Dose: 650 mg Albuterol/Ipratropium (Duoneb -) 1 amp NEB RQID [facility] Stop: 01/30/18 23:59 Last Admin: 01/30/18 07:40 Dose: Not Given Diphenhydramine HCl (Benadryl -) 25 mg PO Q6H PRN PRN Reason: FOR ITCHING Diphenhydramine HCl (Benadryl Injection -) 12.5 mg IVPUSH ONCE PRN PRN Reason: FOR ITCHING Docusate Sodium (Colace -) 100 mg PO TID [facility] Last Admin: 01/30/18 06:07 Dose: 100 mg Ferrous Sulfate (Feosol -) 325 mg PO DAILY [facility] Last Admin: 01/29/18 10:28 Dose: 325 mg Folic Acid (Folic Acid -) 1 mg PO DAILY [facility] Last Admin: 01/29/18 10:28 Dose: 1 mg Heparin Sodium (Porcine) (Heparin -) 5,000 unit SQ TID [facility] Last Admin: 01/30/18 06:09 Dose: 5,000 unit Hydromorphone HCl (Dilaudid Real Time Operator -) 10 mg CABINET PROFESSIONAL CABINET PROFESSIONAL [facility]; Protocol Stop: 02/03/18 10:24 Last Admin: 01/30/18 01:00 Dose: 10 mg Lactated Ringer's (Lactated Ringers Solution) 1,000 mls @ 125 mls/hr IV ASDIR [facility] Last Admin: 01/30/18 00:51 Dose: 125 mls/hr Magnesium Hydroxide (Milk Of Magnesia -) 30 ml PO DAILY PRN PRN Reason: CONSTIPATION Last Admin: 01/29/18 10:28 Dose: 30 ml Ondansetron HCl (Zofran Injection) 4 mg IVPUSH Q6H PRN PRN Reason: NAUSEA AND/OR VOMITING Ondansetron HCl (Zofran Injection) 4 mg IVPUSH Q4H PRN PRN Reason: NAUSEA AND/OR VOMITING Pantoprazole Sodium (Protonix Iv) 40 mg IVPUSH DAILY [facility] Stop: 01/30/18 23:59 Last Admin: 01/29/18 10:28 Dose: 40 mg Senna (Senna -) 1 tab PO BID [facility] Last Admin: 01/29/18 21:06 Dose: 1 tab Senna (Senna -) 1 tab PO HS [facility] Simethicone (Mylicon -) 80 mg PO Q6HPO [facility] Last Admin: 01/30/18 06:07 Dose: 80 mg Tamsulosin HCl (Flomax -) 0.4 mg PO DAILY@0830 [facility] Last Admin: 01/30/18 08:45 Dose: 0.4 mg # thoracic spondylolisthesis s/p T6-T11 laminectomy/costovertebral osteotomies decompression and fusion - pain controlled with CABINET PROFESSIONAL - encourage spirometry use/ ambulation - trend cbc # urinary obstruction - seals - flomax - trial of voiding # Gas Pains/ constipation - Simethicone q 6 hrs - MOM - Senna ordered / colace BID - Encourage ambulation Problem List - Problems (1) Status post thoracic spinal fusion Code(s): Z98.1 - ARTHRODESIS STATUS (2) Back pain Code(s): M54.9 - DORSALGIA, UNSPECIFIED Qualifiers: Back pain location: low back pain Chronicity: chronic Back pain laterality: midline Sciatica presence: unspecified whether sciatica present Qualified Code(s): M54.5 - Low back pain; G89.29 - Other chronic pain (3) Urinary obstruction, not elsewhere classified Code(s): N13.9 - OBSTRUCTIVE AND REFLUX UROPATHY, UNSPECIFIED (4) Constipation due to opioid therapy Code(s): K59.03 - DRUG INDUCED CONSTIPATION; T40.2X5A - ADVERSE EFFECT OF OTHER OPIOIDS, INITIAL ENCOUNTER
[2018-02-01] MEDS: SENNOSIDES 8.6MG TABLET (FP) PO SCH (21:08)
[2018-02-01] MEDS: POLYETHYLENE GLYCOL 3350 119 GM BTL PO SCH (21:08)
[2018-02-02] MEDS: DOCUSATE SODIUM 100 MG CAPSULE (FP) PO SCH ×3 (06:20→21:31)
[2018-02-02] MEDS: diazePAM 5 MG TABLET PO PRN (06:21)
[2018-02-02] MEDS: SIMETHICONE 80 MG TAB.CHEW (FP) PO SCH ×3 (06:21→18:17)
[2018-02-02] MEDS: HEPARIN NA (PORCINE) 5,000 UNITS/ML 1ML VIAL SQ SCH ×3 (06:21→21:34)
[2018-02-02] MEDS: POLYETHYLENE GLYCOL 3350 119 GM BTL PO SCH ×3 (06:21→21:31)
[2018-02-02] MEDS: ACETAMINOPHEN 325 MG TABLET (FP) PO SCH ×3 (06:21→15:46)
[2018-02-02] MEDS: ALBUTEROL SO4 2.5/IPRATROPIUM 0.5 INH SOL 3 ML VIAL.NEB. NEB SCH ×4 (07:40→20:06)
[2018-02-02 07:45] LABS: BASO % 0.3 % (0-2.0); EOS % 2.5 % (0-4.5); HEMATOCRIT 34.8 % (35.4-49); HEMOGLOBIN 11.7 GM/dL (11.7-16.9); LYMPH % 12.1 % (8-40); MCHC 33.7 g/dl (32.0-35.9); MEAN CELL VOLUME 94.9 fl (80-96); MEAN PLT VOLUME 7.5 fl (7.5-11.1); MONO % 8.4 % (3.8-10.2); NEUT % 76.7 % (42.8-82.8); PLATELET COUNT 310 K/MM3 (134-434); RBC 3.67 M/mm3 (4.00-5.60); RDW 12.5 % (11.9-15.9); WHITE BLOOD COUNT 10.9 K/mm3 (4.0-10.0)
[2018-02-02 07:57] LABS: ANION GAP 10 MMOL/L (8-16); BLOOD UREA NITROGEN 12 mg/dL (7-18); CALCIUM 9.3 mg/dL (8.5-10.1); CHLORIDE 99 mmol/L (98-107); CO2 28 mmol/L (21-32); CREATININE 0.8 mg/dL (0.55-1.3); GLUCOSE,RANDOM 111 mg/dL (74-106); POTASSIUM 4.5 mmol/L (3.5-5.1); SODIUM 137 mmol/L (136-145)
[2018-02-02] MEDS ORDERED: MAGNESIUM CITRATE 300 ML BOTTLE PO ONE (08:28)
[2018-02-02] MEDS ORDERED: oxyCODONE HCL 5 MG TABLET PO PRN ×2 (08:30)
--- NOTE | 2018-02-02 08:56 | PN ---
Progress Note (short form) - Note Progress Note: POD #6 T6-T11 laminectomy/costovetebral osteotomies decompression and fusion with pedicle screws, repair of durotomy. Patient seen an examined at bedside c/ o constipation and abdominal pain. He has not had a BM since before the surgery. He is tolerating his regular diet and has been OOB with a walker. He continues to have Left LE radiculopathy which is unchanged from his pre-op symptoms. He is voiding without limitation and denies any CP, SOB, N/V, H/A Fever or chills. Vital Signs Period Temp Pulse Resp BP Sys/Lin Pulse Ox Last 24 Hr 98.3 F-98.6 F 88-112 18-20 111-136/64-80 98-98 CBC, BMP 09/17/18 06:30 09/17/18 06:30 PE: A&Ox3, NAD Unlabored resp on RA Abd: soft, ND, Diffusely TTP throughout with marked RUQ ttp. some guarding on exam, no masses or organomegaly. spine incision: Dressing c/d/i with surrounding tissue intact and no evidence of tracking erythema, ecchymosis collection or d/c. Drain removed with tip fully intact. drain site clean and dry, dermabond and pressure dressing applied. Still has some blistering at edges of previous tegaderm placement, no sign of infection. B/L LE with 5/5 on dorsi/plantar flexion, b/l LE compartments soft, supple and non-tender to palpation +2 DP pulses. Problem List - Problems (1) Status post thoracic spinal fusion Assessment/Plan: POD #6 multilevel fusion with constipation likely 2/2 opiod pain management. 1) Pain medication adjusted and reduced. 2) Fleet enema and mag citrate added to bowel regimen 3) Continue DVT prophylaxis 4) Encourage OOB with walker and lots of fluids, will also aid in moving bowels 5) keep incision clean and dry, reinforce PRN 6) d/c planning once moving bowels, abdominal pain resolves. Evaluation and plan discussed with Dr Zazueta Code(s): Z98.1 - ARTHRODESIS STATUS
[2018-02-02] MEDS ORDERED: PT OWN MED DRAWER 7, Y5N ONE (09:36)
[2018-02-02] MEDS: FERROUS SO4 325 MG TABLET (FP) PO SCH (09:41)
[2018-02-02] MEDS: PANTOPRAZOLE 40 MG TABLET (FP) PO SCH (09:41)
[2018-02-02] MEDS: FOLIC ACID 1 MG TABLET (FP) PO SCH (09:41)
[2018-02-02] MEDS: TAMSULOSIN HCL 0.4 MG CAP.ER.24H (FP) PO SCH (09:41)
--- NOTE | 2018-02-02 14:03 | DS ---
Physical Examination Vital Signs: Vital Signs Temperature 98.1 F 02/02/18 10:00 Pulse Rate 104 H 02/02/18 10:00 Respiratory Rate 20 02/02/18 10:00 Blood Pressure 136/86 02/02/18 10:00 O2 Sat by Pulse Oximetry (%) 98 02/02/18 09:00 Findings/Remarks: : 37 yo male with chronic back pain thoracic spondylolisthesis s/p T6-T11 laminectomy/costovetebral osteotomies decompression and fusion with pedicle screws had complicated post op course 2/2 to urinary obstruction which required seals, he responded well to flomax and was able to void freely without seals 48 hrs later. He also developed severe constipation likely 2/2/ to narcotics / was pn [employer] for 4 days and transitioned to oxycodone for the following days. Bowel regimine was increased and patient had good results day of d/c He has been able to void freely and habe BM. He is ambulating in trotter way, requiring much less pain meds. # thoracic spondylolisthesis s/p T6-T11 laminectomy/costovetebral osteotomies decompression and fusion with pedicle screws # urinary obstruction required seals temporarily, now on flomax # Gas Pains/ constipation likely 2/2 narcotics out patient management --ambulation / tylenol / miralax daily / colace 200bid Constitutional: Yes: Well Nourished, No Distress, Calm, Other Eyes: Yes: WNL, Conjunctiva Clear, EOM Intact HENT: Yes: Atraumatic, Normocephalic Neck: Yes: Supple, Trachea Midline Cardiovascular: Yes: Regular Rate and Rhythm Respiratory: Yes: Regular, CTA Bilaterally Gastrointestinal: Yes: Normal Bowel Sounds, Tenderness, Epigastrium. No: Distention, Tenderness, Rebound Renal/: Yes: WNL. No: Bladder Distention Breast(s): Yes: WNL Musculoskeletal: Yes: WNL Extremities: Yes: Deformity Edema: No Peripheral Pulses WNL: Yes Integumentary: Yes: WNL Wound/Incision: Yes: Clean/Dry, Well Approximated Neurological: Yes: WNL, Alert, Oriented ...Motor Strength: WNL Psychiatric: Yes: Alert, Oriented Labs: CBC, BMP 02/02/18 06:30 02/02/18 06:30 Discharge Summary Reason For Visit: THORACIC SPONDYLOSIS AND INSTABILITY Current Active Problems Constipation due to opioid therapy (Acute) Status post thoracic spinal fusion (Acute) Urinary obstruction, not elsewhere classified (Acute) Condition: Improved - Instructions Diet, Activity, Other Instructions: Dr. Zazueta's Post Operative Instructions Physical Activity Resume your normal everyday activity as tolerated. No heavy lifting or exercise until seen by your surgeon. You may walk unlimited amounts and climb stairs. You may resume driving the car when you feel safe and comfortable behind the wheel and you are no longer wearing your brace. Do not operate a vehicle while taking narcotic medication. Brace If you had back surgery, wear TLSO Brace whenever out of bed. May remove to sleep and shower. If you had neck surgery, wear surgical collar 23 hr/day. Remove to shower only. Wound Care Keep your incision clean, dry and covered at all times. Apply an occlusive dressing (Saran wrap or Tegaderm) when showering to avoid getting your incision wet. Do not submerge incision or apply ointments or creams. The helen will be removed in the office in 10-14 days post-op. Diet There are no dietary restrictions. Eat healthy, high-fiber foods. Drink 6-8 glasses of liquid each day. This will assist in keeping your bowels regular. Pain Management You may take Tylenol or acetaminophen. Any pain prescription medication ordered should be taken as prescribed for moderate to severe pain. Call Dr Cain for any of the following: Severe pain not relieved by medication Fever of 101 or higher Excessive bleeding or drainage on dressing Inability to urinate Any chest pain or shortness of breath, seek Emergency Care. Call the office to confirm a post-operative appointment 7-10 days post-op Jakub Zazueta MD [facility] [address] [place] [address] Referrals: Lorena Rubio MD [Staff Physician] - Jakub Zazueta MD, FAANS [Staff Physician] - Disposition: HOME - Home Medications Comprehensive Discharge Medication List: Ambulatory Orders NK [No Known Home Medication] 01/26/18 colace 200 bid miralax 1 pkg daily tylenol 650 q6 hr for pain avoid narcotics
[2018-02-02] MEDS: ACETAMINOPHEN 500 MG TABLET (FP) PO PRN (21:29)
[2018-02-02] MEDS: SENNOSIDES 8.6MG TABLET (FP) PO SCH (21:31)
[2018-02-03] MEDS: SIMETHICONE 80 MG TAB.CHEW (FP) PO SCH ×3 (00:18→11:44)
[2018-02-03] MEDS: DOCUSATE SODIUM 100 MG CAPSULE (FP) PO SCH (05:17)
[2018-02-03] MEDS: ACETAMINOPHEN 500 MG TABLET (FP) PO PRN ×2 (05:18→11:43)
[2018-02-03] MEDS: POLYETHYLENE GLYCOL 3350 119 GM BTL PO SCH (05:18)
[2018-02-03] MEDS: HEPARIN NA (PORCINE) 5,000 UNITS/ML 1ML VIAL SQ SCH (05:28)
[2018-02-03 06:20] VITALS: BP 134/78; PULSE 116; TEMP 98.5
[2018-02-03] MEDS: ALBUTEROL SO4 2.5/IPRATROPIUM 0.5 INH SOL 3 ML VIAL.NEB. NEB SCH ×2 (07:25→12:07)
--- NOTE | 2018-02-03 09:24 | PN ---
Progress Note (short form) - Note Progress Note: -: 37 y/o s/p spinal fusion found sitting in bed. c/o of abdominal spasms had multiple BM yesterday -- mostly watery stool instructed to continue colace and Miralax as out patient avoid Narcotic and Laxitives He understands Vital Signs Period Temp Pulse Resp BP Sys/Lin Pulse Ox Last 24 Hr 98.1 F-98.5 F 89-116 18-20 125-136/66-86 98 no fever / chill HEENT- NL Neck- supple Lungs- CTAB Heart- S1/S2 Abd- Soft, nt Skin- Surgical dsg intact / thoracic / drain out / dressing to site clean and dry Ext- No LE edema Active Medications Acetaminophen (Tylenol -) 1,000 mg PO Q6H PRN PRN Reason: PAIN Last Admin: 02/03/18 05:18 Dose: 1,000 mg Albuterol/Ipratropium (Duoneb -) 1 amp NEB RQID [facility] Last Admin: 02/03/18 07:25 Dose: Not Given Diphenhydramine HCl (Benadryl -) 25 mg PO Q6H PRN PRN Reason: FOR ITCHING Diphenhydramine HCl (Benadryl Injection -) 12.5 mg IVPUSH ONCE PRN PRN Reason: FOR ITCHING Docusate Sodium (Colace -) 200 mg PO TID [facility] Last Admin: 02/03/18 05:17 Dose: 200 mg Ferrous Sulfate (Feosol -) 325 mg PO DAILY [facility] Last Admin: 02/02/18 09:41 Dose: 325 mg Folic Acid (Folic Acid -) 1 mg PO DAILY [facility] Last Admin: 02/02/18 09:41 Dose: 1 mg Heparin Sodium (Porcine) (Heparin -) 5,000 unit SQ TID [facility] Last Admin: 02/03/18 05:28 Dose: 5,000 unit Magnesium Hydroxide (Milk Of Magnesia -) 30 ml PO DAILY PRN PRN Reason: CONSTIPATION Last Admin: 02/01/18 21:06 Dose: 30 ml Ondansetron HCl (Zofran Injection) 4 mg IVPUSH Q4H PRN PRN Reason: NAUSEA AND/OR VOMITING Pantoprazole Sodium (Protonix -) 40 mg PO DAILY [facility] Last Admin: 02/02/18 09:41 Dose: 40 mg Polyethylene Glycol (Miralax (For Daily Use) -) 17 gm PO TID [facility] Last Admin: 02/03/18 05:18 Dose: 17 gm Senna (Senna -) 1 tab PO HS [facility] Last Admin: 02/02/18 21:31 Dose: 1 tab Simethicone (Mylicon -) 80 mg PO Q6HPO [facility] Last Admin: 02/03/18 05:18 Dose: 80 mg Tamsulosin HCl (Flomax -) 0.4 mg PO DAILY@0830 [facility] Last Admin: 02/02/18 09:41 Dose: 0.4 mg # thoracic spondylolisthesis s/p T6-T11 laminectomy/costovertebral osteotomies decompression and fusion - encourage ambulation - spirometry as out patient # urinary obstruction resolved #abdominal pain / cramps - 2/2 to laxatives - continue colace and Miralax as out patient follow up instructions given Problem List - Problems (1) Status post thoracic spinal fusion Code(s): Z98.1 - ARTHRODESIS STATUS (2) Back pain Code(s): M54.9 - DORSALGIA, UNSPECIFIED Qualifiers: Back pain location: low back pain Chronicity: chronic Back pain laterality: midline Sciatica presence: unspecified whether sciatica present Qualified Code(s): M54.5 - Low back pain; G89.29 - Other chronic pain (3) Urinary obstruction, not elsewhere classified Code(s): N13.9 - OBSTRUCTIVE AND REFLUX UROPATHY, UNSPECIFIED (4) Constipation due to opioid therapy Code(s): K59.03 - DRUG INDUCED CONSTIPATION; T40.2X5A - ADVERSE EFFECT OF OTHER OPIOIDS, INITIAL ENCOUNTER
[2018-02-03] MEDS: FERROUS SO4 325 MG TABLET (FP) PO SCH (09:39)
[2018-02-03] MEDS: TAMSULOSIN HCL 0.4 MG CAP.ER.24H (FP) PO SCH (09:39)
[2018-02-03] MEDS: PANTOPRAZOLE 40 MG TABLET (FP) PO SCH (09:40)
[2018-02-03] MEDS: FOLIC ACID 1 MG TABLET (FP) PO SCH (09:40)
--- NOTE | 2018-02-03 13:12 | PN ---
Progress Note (short form) - Note Progress Note: Pt seen and examined at approx 11AM. Pt sitting in bed in nad. Reports some abdominal pain, slowly improving, +BM yesterday. +h/a, no visual changes or dizziness. +voiding, has been oob with PT. Tolerating PO, pain controlled. Denies cp, sob, n/,d, calf pain. Vital Signs Temp 98.5 F 02/03/18 06:19 Pulse 116 H 02/03/18 06:19 Resp 20 02/03/18 06:19 BP 134/78 02/03/18 06:19 Pulse Ox 98 02/03/18 09:00 Intake & Output 02/02/18 02/03/18 02/03/18 23:59 11:59 23:59 Weight 200 lb Other: Voiding Method Toilet Toilet Bowel Movement Yes # Bowel Movements 3 Height 5 ft 11 in Body Mass Index (BMI) 27.8 CBC, BMP 02/02/18 06:30 02/02/18 06:30 Gen: awake, alert, nad Back: dressing c/d/i, no surrounding erythema, no palpable hematoma. Small dried blisters to R aspect of the incision (from prior tegaderm) no erythema or drainage. Ext: b/l le's 5/5 EHL/FHL/DF/PF, silt b/l, palpable pulses b/l 37 y/o M with thoracic spondylolisthesis now POD 7 from T6-T11 laminectomy/ costovertebral osteotomies decompression and fusion. Stable post op, tolerating PO, ambulating with brace without issue. +voiding, + BM yesterday. VS stable P: D/c later today Attending Dr Zazueta by to see pt at completion of evaluation
== END 2018-02-03 12:12 | disposition home or self-care (01) | DRG 460 ==
LOC: JSAMEDAYSX 06:11 → EDSTATUS 11:45 → J8W 17:58
PROVIDERS: ADMIT Family Medicine; ATTEND Family Medicine
PROC: 0HX6XZZ Transfer Back Skin, External Approach (ICD-10-PCS; 2018-01-27)
PROC: 0RB90ZZ Excision of Thoracic Vertebral Disc, Open Approach (ICD-10-PCS; 2018-01-27)
PROC: 00QT0ZZ Repair Spinal Meninges, Open Approach (ICD-10-PCS; 2018-01-27)
PROC: 0RG70AJ Fusion of 2 to 7 Thoracic Vertebral Joints with Interbody Fusion Device, Posterior Approach, Anterior Column, Open Approach (ICD-10-PCS; principal; 2018-01-27 08:00)
DX: M47.894 Other spondylosis, thoracic region (principal); G97.41 Accidental puncture or laceration of dura during a procedure; M51.24 Other intervertebral disc displacement, thoracic region; K59.03 Drug induced constipation; T40.2X5A Adverse effect of other opioids, initial encounter; N13.9 Obstructive and reflux uropathy, unspecified; F17.210 Nicotine dependence, cigarettes, uncomplicated; Z88.0 Allergy status to penicillin; Y83.8 Other surgical procedures as the cause of abnormal reaction of the patient, or of later complication, without mention of misadventure at the time of the procedure
CPT/HCPCS: 36415; 72128-TC; 76000-TC-FY; 80048; 80053; 85025; 85027; 86850; 86900; 86901; 94010; 94640; 94760; 97116-GP; 97162-GP; J0131; J1644; J7620

== ENCOUNTER 2018-04-10 23:02 | Emergency (ER) | payer BC ==
[2018-04-10 23:10] VITALS: BP 122/87; PULSE 97; TEMP 97.6; BMI 27.1
--- NOTE | 2018-04-10 23:38 | PDOC ---
History of Present Illness <Cadence Ibarra - Last Filed: 04/11/18 00:43> - General History Source: Patient Exam Limitations: No Limitations - History of Present Illness Travel History: No Initial Comments: 04/11/18 01:23 Best Contact: PCP:Dr. Morgan Jones Pmhx: 0 Pshx: 01/2018, thoracic fusion/Dr. Markham Allergies:PCN/unk rxn/ states informed by mother he has a rxn as a child FH:0 37-year-old male presents to the emergency department complaining of right upper quadrant abdominal discomfort. Pain is described as 8/10 sharp nonradiating intermittent discomfort. The pain is exacerbated after eating and alleviated at minimally after taking Gas-X. Patient states he's been having these symptoms for the past 2-3 weeks. Patient denies fever/chills, headache, nausea/vomiting, diarrhea, dizziness, lightheadedness, neck pains, chest pain, shortness of breath, back pains, flank pains, urinary symptoms: Frequency/ urgency/hesitancy, burning upon urination, extremity numbness or tingling sensation. Patient states his bowel movements has been normal/last episode at approximately 0900 hrs. this morning. Patient denies it being bilious or bloody. <Alexander Zapata - Last Filed: 04/11/18 01:28> - General Chief Complaint: Pain Stated Complaint: POST OP PAIN/STOMACH Time Seen by Provider: 04/10/18 23:21 Past History <Cadence Ibarra - Last Filed: 04/11/18 00:43> - Past Medical History Anemia: No Cardiac Disorders: No CVA: No COPD: No CHF: No DVT: No Dementia: No Dialysis: No - Surgical History Cardiac Surgery: No Cholecystectomy: No - Immunization History Immunization Up to Date: Yes - Suicide/Smoking/Psychosocial Hx Smoking Status: Yes Smoking History: Current every day smoker Have you smoked in the past 12 months: Yes Number of Cigarettes Smoked Daily: 1 Cigars Per Day: 1 Information on smoking cessation initiated: Yes 'Breaking Loose' booklet given: 04/10/18 Hx Alcohol Use: Yes (occasion) Drug/Substance Use Hx: No Substance Use Type: None Hx Substance Use Treatment: No <Alexander Zapata - Last Filed: 04/11/18 01:28> - Past Medical History Allergies/Adverse Reactions: Allergies Allergy/AdvReac Type Severity Reaction Status Date / Time Penicillins Allergy Verified 01/27/18 06:41 Home Medications: Ambulatory Orders NK [No Known Home Medication] 04/10/18 Review of Systems - Review of Systems Able to Perform ROS?: Yes Comments:: 04/11/18 01:27 CONSTITUTIONAL: Absent: fever, chills, diaphoresis, generalized weakness, malaise, loss of appetite HEENT: Absent: rhinorrhea, nasal congestion, throat pain, throat swelling, difficulty swallowing, mouth swelling, ear pain, eye pain, visual Changes CARDIOVASCULAR: Absent: chest pain, loss of consciousness, palpitations, irregular heart rate, peripheral edema RESPIRATORY: Absent: cough, shortness of breath, dyspnea with exertion, orthopnea, wheezing, stridor, hemoptysis GASTROINTESTINAL: +RUQ pain Absent:abdominal distension, nausea, vomiting, diarrhea, constipation, melena, hematochezia GENITOURINARY: Absent: dysuria, frequency, urgency, hesitancy, hematuria, flank pain, genital pain MUSCULOSKELETAL: Absent: myalgia, arthralgia, joint swelling SKIN: Absent: rash, itching, pallor HEMATOLOGIC/IMMUNOLOGIC: Absent: easy bleeding, easy bruising, lymphadenopathy, frequent infections 04/11/18 01:28 Is the patient limited Russian proficient: No <Daniela Zapataui - Last Filed: 04/11/18 01:28> *Physical Exam - Vital Signs Last Vital Signs Temp Pulse Resp BP Pulse Ox 97.6 F 97 H 20 122/87 98 04/10/18 23:07 04/10/18 23:07 04/10/18 23:07 04/10/18 23:07 04/10/18 23:07 <Cadence Ibarra - Last Filed: 04/11/18 00:43> - Vital Signs Last Vital Signs Temp Pulse Resp BP Pulse Ox 97.6 F 97 H 20 122/87 98 04/10/18 23:07 04/10/18 23:07 04/10/18 23:07 04/10/18 23:07 04/10/18 23:07 - Physical Exam Comments: 04/11/18 01:27 GENERAL: Well developed, well nourished. Awake and alert. No acute distress. HEENT: Normocephalic, atraumatic. PERRLA, EOMI. No conjunctival pallor. Sclera are non- icteric. Moist mucous membranes. Oropharynx is clear. NECK: Supple. Full ROM. No JVD. Carotid pulses 2+ and symmetric, without bruits. No thyromegaly. No lymphadenopathy. CARDIOVASCULAR: Regular rate and rhythm. No murmurs, rubs, or gallops. Distal pulses are 2+ and symmetric. PULMONARY: No evidence of respiratory distress. Lungs clear to auscultation bilaterally. No wheezing, rales or rhonchi. ABDOMINAL: RUQ pain on deep palp Soft. Non-distended. No rebound or guarding. No organomegaly. Normoactive bowel sounds. MUSCULOSKELETAL Normal range of motion at all joints. No bony deformities or tenderness. No CVA tenderness. EXTREMITIES: No cyanosis. No clubbing. No edema. No calf tenderness. SKIN: Warm and dry. Normal capillary refill. No rashes. No jaundice. <Alexander Zapata - Last Filed: 04/11/18 01:28> ED Treatment Course - LABORATORY CBC & Chemistry Diagram: 04/10/18 23:45 04/10/18 23:45 - ADDITIONAL ORDERS Additional order review: Laboratory Results 04/10/18 23:45 Sodium 140 Potassium 4.3 Chloride 108 H Carbon Dioxide 25 Anion Gap 8 BUN 14 Creatinine 0.8 Creat Clearance w eGFR > 60 Random Glucose 97 Calcium 9.1 Total Bilirubin 0.7 AST 18 ALT 24 Alkaline Phosphatase 99 Total Protein 7.5 Albumin 4.1 Lipase 170 04/10/18 23:45 RBC 5.14 MCV 92.4 MCHC 33.4 RDW 12.8 MPV 8.2 Neutrophils % 52.8 D Lymphocytes % 34.1 D Monocytes % 8.5 Eosinophils % 3.7 Basophils % 0.9 - RADIOLOGY Radiograph Interpretation: 04/11/18 00:43 EXAM: Ultrasound abdomen right upper quadrant HISTORY: Right upper quadrant pain COMPARISON: None. FINDINGS: There are no stones or sludge seen in the gallbladder. The gallbladder wall is normal in thickness measuring 1.3 mm. No pericholecystic fluid The common bile duct is within normal limits measuring 4.7 mm The liver is normal in size and contour. There is increased echotexture relative to the right renal cortex compatible with steatosis. No intrahepatic biliary dilatation. No hepatic masses. The right kidney is unremarkable Suboptimal visualization of the pancreas secondary to overlying bowel gas. Visualized portions of the pancreas appear normal The visualized abdominal aorta is within normal limits Read by: Burke Adam MD <Cadence Ibarra - Last Filed: 04/11/18 00:43> - LABORATORY CBC & Chemistry Diagram: 04/10/18 23:45 04/10/18 23:45 <Alexander Zapata - Last Filed: 04/11/18 01:28> *DC/Admit/Observation/Transfer - Attestations Scribe Attestion: 04/11/18 00:44 Documentation prepared by Cadence Ibarra, acting as medical artist for Darcy Huang DO. <Cadence Ibarra - Last Filed: 04/11/18 00:43> - Discharge Dispostion Decision to Admit order: No <Alexander Zapata - Last Filed: 04/11/18 01:28> Diagnosis at time of Disposition: Abdominal pain Qualifiers: Abdominal location: right upper quadrant Qualified Code(s): R10.11 - Right upper quadrant pain - Discharge Dispostion Disposition: HOME Condition at time of disposition: Stable - Referrals Referrals: Chung Callahan DO [Staff Physician] - - Patient Instructions Printed Discharge Instructions: DI for Abdominal Pain-Adult Additional Instructions: The ultrasound this evening shows there are no stones or sludge seen in the gallbladder. Your gallbladder wall is normal in thickness measuring 1.3 mm. There are no pericholecystic fluid. The common bile duct is within normal limits measuring 4.7 mm. Be sure to follow-up with your level vial marker as scheduled for April 15 Return back to the emergency department for severe/persistent or worsening symptoms. - Post Discharge Activity Forms/Work/School Notes: Back to Work
[2018-04-10 23:51] LABS: BASO % 0.9 % (0-2.0); EOS % 3.7 % (0-4.5); HEMATOCRIT 47.5 % (35.4-49); HEMOGLOBIN 15.9 GM/dL (11.7-16.9); LYMPH % 34.1 % (8-40); MCH 30.9 pg (25.7-33.7); MCHC 33.4 g/dl (32.0-35.9); MEAN CELL VOLUME 92.4 fl (80-96); MEAN PLT VOLUME 8.2 fl (7.5-11.1); MONO % 8.5 % (3.8-10.2); NEUT % 52.8 % (42.8-82.8); PLATELET COUNT 216 K/MM3 (134-434); RBC 5.14 M/mm3 (4.00-5.60); RDW 12.8 % (11.9-15.9); WHITE BLOOD COUNT 9.8 K/mm3 (4.0-10.0)
[2018-04-11 00:15] LABS: ALBUMIN 4.1 g/dl (3.4-5.0); ALK PHOS 99 U/L (45-117); ANION GAP 8 MMOL/L (8-16); BILIRUBIN,TOTAL 0.7 mg/dL (0.2-1); BLOOD UREA NITROGEN 14 mg/dL (7-18); CALCIUM 9.1 mg/dL (8.5-10.1); CHLORIDE 108 mmol/L (98-107); CO2 25 mmol/L (21-32); CREATININE 0.8 mg/dL (0.55-1.3); GLUCOSE,RANDOM 97 mg/dL (74-106); LIPASE 170 U/L (73-393); POTASSIUM 4.3 mmol/L (3.5-5.1); SGOT/AST 18 U/L (15-37); SGPT/ALT 24 U/L (13-61); SODIUM 140 mmol/L (136-145); TOT PROT 7.5 g/dl (6.4-8.2)
== END 2018-04-11 01:26 | disposition home or self-care (01) ==
LOC: JER 23:02
DX: R10.11 Right upper quadrant pain (principal); Z98.890 Other specified postprocedural states; Z98.1 Arthrodesis status
CPT/HCPCS: 36415; 76705-TC; 80053; 83690; 85025; 99283-25

== ENCOUNTER 2022-09-02 11:06 | Emergency (ER) | payer BC, OTHER ==
[2022-09-02 11:22] VITALS: BP 127/78; PULSE 79; RESP 16; TEMP 98.3; BMI 27.6
== END 2022-09-02 12:21 | disposition home or self-care (01) ==
LOC: FER 11:06
DX: H60.312 Diffuse otitis externa, left ear (principal)
CPT/HCPCS: 99283-25